=== PATIENT | male | born 1995 | race African-American/Black ===

== ENCOUNTER 2017-12-08 07:31 | Emergency (ER) | payer OTHER ==
[2017-12-08] MEDS ORDERED: METAL LOCK LOOP XX (09:11)
== END 2017-12-08 10:30 | disposition home or self-care (01) ==
LOC: M ED 07:31
DX: J06.9 Acute upper respiratory infection, unspecified (principal); F17.210 Nicotine dependence, cigarettes, uncomplicated
CPT/HCPCS: 71046